=== PATIENT | female | born 1990 | race Two or more races ===

== ENCOUNTER 2023-11-23 04:27 | Emergency (ER) | payer OTHER, MEDICAID ==
[~2023-11-23] VITALS: Ht 154.9 cm; Wt 82.7 kg
[2023-11-23] MEDS: IPRATROPIUM BROM 0.5 MG/2.5ML INH SOL NEB ONE (05:11)
[2023-11-23] MEDS: ALBUTEROL SULF 2.5 MG/0.5ML(0.5%) NEB SOLN NEB ONE (05:11)
[2023-11-23] MEDS ORDERED: PRED20TA2 PO (05:30)
[2023-11-23] MEDS ORDERED: ALBU108A5 IN (05:30)
[2023-11-23] MEDS: DexAMETHasone SOD PHOS 10MG/1ML VIAL INJ IM ONE (05:40)
[2023-11-23 05:46] VITALS: BP 137/60; PULSE 86; RESP 16; TEMP 98.2; O2SAT 94
== END 2023-11-23 05:46 | disposition home or self-care (01) ==
LOC: ER 04:27
DX: J45.901 Unspecified asthma with (acute) exacerbation (principal)
CPT/HCPCS: 94640; 96372; 99283; J1100; J7644